=== PATIENT | female | born 1990 | race Caucasian/White ===

== ENCOUNTER 2018-05-18 22:59 | Emergency (ER) | payer BC, OTHER ==
[2018-05-18] MEDS ORDERED: Sodium Chloride 0.9% 1,000 ML IV ONE (23:28)
[2018-05-18] MEDS ORDERED: Ketorolac 30 MG/ML SDV IVPUSH ONE (23:28)
[2018-05-18] MEDS ORDERED: LORazepam 2 MG/ML SDV IVPUSH ONE (23:28)
[2018-05-18] MEDS ORDERED: diphenhydrAMINE 50 MG/ML SDV IVPUSH ONE (23:28)
[2018-05-18] MEDS ORDERED: Ondansetron 4 MG/2 ML SDV IVPUSH ONE (23:28)
[2018-05-18] MEDS ORDERED: Sodium Chloride 0.9% 2.5 ML Syringe FLUSH PRN (23:29)
[2018-05-18] MEDS ORDERED: Sodium Chloride 0.9% 10 ML Syringe FLUSH PRN (23:29)
[2018-05-18] MEDS ORDERED: methylPREDNISolone Sodium Succinate 125 MG/2 ML SDV IVPUSH ONE (23:29)
--- NOTE | 2018-05-18 23:32 | EDM.PDOC ---
ED HPI GENERAL MEDICAL PROBLEM - General Chief Complaint: Headache Stated Complaint: HEADACHE Time Seen by Provider: 05/18/18 23:20 - History of Present Illness INITIAL COMMENTS - FREE TEXT/NARRATIVE: HISTORY AND PHYSICAL: History of present illness: The patient is a 28-year-old female who says that she has a long-standing history of headaches and usually gets them once a month always on the left side of her head and can usually control them at home but is here for an intractable headache. She says the presentation of this headache and location are exactly the same as all of her prior headaches and usually she just tries to use symptomatic care and it did not work today. She started having vomiting and now cannot stop vomiting and is made the headache worse. She's had no recent trauma or fevers no upper respiratory symptoms and says that in the past she was prescribed Imitrex by a family doctor but she says that that does not work and actually makes her feel worse. She did not try the Imitrex prior to coming here. She said she's had some tension and stressors and has had some muscle aches and pains and she is not sure of this triggered it. She has no visual changes and she is not lightheaded or dizzy nor has she had any neurosensory changes or weakness in her extremities. She's had no runny nose or sinus pressure Review of systems: As per history of present illness and below otherwise all systems reviewed and negative. Past medical history: As per history of present illness and as reviewed below otherwise noncontributory. Surgical history: As per history of present illness and as reviewed below otherwise noncontributory. Social history: No reported history of drug or alcohol abuse. Family history: As per history of present illness and as reviewed below otherwise noncontributory. Physical exam: HEENT: Atraumatic, normocephalic, pupils reactive, negative for conjunctival pallor or scleral icterus, mucous membranes moist, throat clear, neck supple, nontender, trachea midline. There is no cervical adenopathy or nuchal rigidity Lungs: Clear to auscultation, breath sounds equal bilaterally, chest nontender. Heart: S1S2, regular, negative for clicks, rubs, or JVD. Abdomen: Soft, nondistended, nontender. Negative for masses or hepatosplenomegaly. NABS Pelvis: Deferred. Genitourinary: Deferred. Rectal: Deferred. Extremities: Atraumatic, negative for cords or calf pain. Neurovascular unremarkable. Neuro: Awake, alert, oriented. Cranial nerves II through XII unremarkable. Cerebellum unremarkable. Motor and sensory unremarkable throughout. Exam nonfocal. Diagnostics: None Therapeutics: IV fluids Toradol Zofran Benadryl Solu-Medrol She is feeling better and would like to go home and go to bed. I will write her prescription for Zofran as well as some Uristat to try and will advise follow- up with her provider or one of ours for further care and evaluation Impression: Migraine equivalent, With history of same stable Definitive disposition and diagnosis as appropriate pending reevaluation and review of above. head Pain Score (Numeric/FACES): 8 - Related Data Allergies Allergy/AdvReac Type Severity Reaction Status Date / Time No Known Allergies Allergy Verified 05/18/18 23:11 Home Meds: Home Meds . 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: Musculoskeletal History: Reports: None Neurological History: Reports: Migraines Psychiatric History: Reports: Anxiety Endocrine/Metabolic History: Reports: None Hematologic History: Reports: None Immunologic History: Reports: None Oncologic (Cancer) History: Reports: None Dermatologic History: Reports: None - Infectious Disease History Infectious Disease History: Reports: None - Past Surgical History Head Surgeries/Procedures: Reports: None HEENT Surgical History: Reports: None Cardiovascular Surgical History: Reports: None Respiratory Surgical History: Reports: None GI Surgical History: Reports: None Female Surgical History: Reports: None Endocrine Surgical History: Reports: None Neurological Surgical History: Reports: None Musculoskeletal Surgical History: Reports: None Social & Family History - Tobacco Use Smoking Status *Q: Never Smoker - Recreational Drug Use Recreational Drug Use: No ED ROS GENERAL - Review of Systems Review Of Systems: ROS reveals no pertinent complaints other than HPI. ED EXAM, GENERAL - Physical Exam Exam: See Below (The dictation) Course - Vital Signs Last Recorded V/S: Last Vital Signs Temp 36.4 C 05/18/18 23:12 Pulse 91 05/18/18 23:12 Resp 14 05/18/18 23:12 BP 123/75 05/18/18 23:12 Pulse Ox 95 05/18/18 23:12 - Orders/Labs/Meds Orders: Active Orders 24 hr Category Date Time Status Sodium Chloride 0.9% [Normal Saline] 1,000 ml Med 05/18/18 23:28 Active IV STAT Sodium Chloride 0.9% [Saline Flush] Med 05/18/18 23:29 Active 10 ml FLUSH ASDIRECTED PRN Sodium Chloride 0.9% [Saline Flush] Med 05/18/18 23:29 Active 2.5 ml FLUSH ASDIRECTED PRN Saline Lock Insert [OM.PC] Stat Oth 05/18/18 23:28 Ordered Medication Orders Sodium Chloride (Normal Saline) 1,000 mls @ 999 mls/hr IV STAT ONE Stop: 05/19/18 00:28 Last Admin: 05/18/18 23:45 Dose: 999 mls/hr Sodium Chloride (Saline Flush) 10 ml FLUSH ASDIRECTED PRN PRN Reason: Keep Vein Open Sodium Chloride (Saline Flush) 2.5 ml FLUSH ASDIRECTED PRN PRN Reason: Keep Vein Open Meds: Medications Generic Name Dose Route Start Last Admin Trade Name Freq PRN Reason Stop Dose Admin Sodium Chloride 1,000 mls @ 999 mls/hr 05/18/18 23:28 05/18/18 23:45 Normal Saline IV 05/19/18 00:28 999 mls/hr STAT ONE Administration Sodium Chloride 10 ml 05/18/18 23:29 Saline Flush FLUSH ASDIRECTED PRN Keep Vein Open Sodium Chloride 2.5 ml 05/18/18 23:29 Saline Flush FLUSH ASDIRECTED PRN Keep Vein Open Discontinued Medications Generic Name Dose Route Start Last Admin Trade Name Freq PRN Reason Stop Dose Admin Diphenhydramine HCl 25 mg 05/18/18 23:28 05/18/18 23:49 Benadryl IVPUSH 05/18/18 23:29 25 mg ONETIME ONE Administration Ketorolac Tromethamine 30 mg 05/18/18 23:28 05/18/18 23:49 Toradol IVPUSH 05/18/18 23:29 30 mg ONETIME ONE Administration Lorazepam 1 mg 05/18/18 23:28 05/18/18 23:51 Ativan IVPUSH 05/18/18 23:29 1 mg ONETIME ONE Administration Methylprednisolone Sodium Succinate 125 mg 05/18/18 23:29 05/18/18 23:48 Solu-Medrol IVPUSH 05/18/18 23:30 125 mg ONETIME ONE Administration Ondansetron HCl 4 mg 05/18/18 23:28 05/18/18 23:45 Zofran IVPUSH 05/18/18 23:29 4 mg ONETIME ONE Administration Departure - Departure Time of Disposition: 00:23 Disposition: Home, Self-Care 01 Condition: Good Clinical Impression: Migraine - Discharge Information Referrals: PCP,None [Primary Care Provider] - Forms: ED Department Discharge Additional Instructions: The following information is given to patients seen in the emergency department who are being discharged to home. This information is to outline your options for follow-up care. We provide all patients seen in our emergency department with a follow-up referral. The need for follow-up, as well as the timing and circumstances, are variable depending upon the specifics of your emergency department visit. If you don't have a primary care physician on staff, we will provide you with a referral. We always advise you to contact your personal physician following an emergency department visit to inform them of the circumstance of the visit and for follow-up with them and/or the need for any referrals to a consulting specialist. The emergency department will also refer you to a specialist when appropriate. This referral assures that you have the opportunity for followup care with a specialist. All of these measure are taken in an effort to provide you with optimal care, which includes your followup. Under all circumstances we always encourage you to contact your private physician who remains a resource for coordinating your care. When calling for followup care, please make the office aware that this follow-up is from your recent emergency room visit. If for any reason you are refused follow-up, please contact the [facility] emergency department at and ask to speak to the emergency department charge nurse. [facility] Primary care- Internal Medicine and Family [address] [id number] Push hydration and rest as much as possible and try to connect with either your provider or one of ours for follow-up care using resources given to above. Return to ER as needed and as discussed. Please fill the prescription you have been given and use those medications as needed. - My Orders Last 24 Hours: My Active Orders 05/18/18 23:28 Sodium Chloride 0.9% [Normal Saline] 1,000 ml IV STAT Saline Lock Insert [OM.PC] Stat 05/18/18 23:29 Sodium Chloride 0.9% [Saline Flush] 10 ml FLUSH ASDIRECTED PRN Sodium Chloride 0.9% [Saline Flush] 2.5 ml FLUSH ASDIRECTED PRN - Assessment/Plan Last 24 Hours: My Active Orders 05/18/18 23:28 Sodium Chloride 0.9% [Normal Saline] 1,000 ml IV STAT Saline Lock Insert [OM.PC] Stat 05/18/18 23:29 Sodium Chloride 0.9% [Saline Flush] 10 ml FLUSH ASDIRECTED PRN Sodium Chloride 0.9% [Saline Flush] 2.5 ml FLUSH ASDIRECTED PRN
[2018-05-19 00:37] VITALS: BP 116/72
== END 2018-05-19 00:43 | disposition home or self-care (01) ==
LOC: MW.ED 22:59
DX: G43.909 Migraine, unspecified, not intractable, without status migrainosus (principal)
CPT/HCPCS: 96361; 96374; 96375; 99283; J1200; J1885; J2060; J2405; J2930; J7040

== ENCOUNTER 2019-05-22 04:55 | Inpatient (IN) | payer OTHER ==
[2019-05-22] MEDS ORDERED: Water For Irrigation,Sterile 1,000 ML Container IRR PRN (06:01)
[2019-05-22] MEDS ORDERED: Misoprostol 200 MCG Tab PO PRN (06:01)
[2019-05-22] MEDS ORDERED: Sodium Chloride 0.9% 2.5 ML Syringe FLUSH PRN (06:01)
[2019-05-22] MEDS ORDERED: Carboprost Tromethamine 250 MCG/1 ML Amp IM PRN (06:01)
[2019-05-22] MEDS ORDERED: Lidocaine 1% 50 ML MDV INJECT PRN (06:01)
[2019-05-22] MEDS ORDERED: Sodium Chloride 0.9% 10 ML SDV IV PRN (06:01)
[2019-05-22] MEDS ORDERED: Methylergonovine 0.2 MG/1 ML Amp IM PRN (06:01)
[2019-05-22] MEDS ORDERED: Terbutaline 1 MG/ML SDV SUBCUT PRN (06:01)
[2019-05-22] MEDS ORDERED: Sodium Chloride 0.9% 10 ML Syringe FLUSH PRN (06:01)
[2019-05-22] MEDS ORDERED: Tranexamic Acid 1,000 MG in Sodium Chloride 0.9% 100 ML IV PRN (06:01)
[2019-05-22] MEDS ORDERED: Nalbuphine 10 MG/1 ML Vial IVPUSH PRN (06:01)
[2019-05-22] MEDS ORDERED: Ondansetron 4 MG/2 ML SDV IVPUSH PRN (06:01)
[2019-05-22] MEDS ORDERED: Butorphanol 1 MG/ML SDV IVPUSH PRN (06:01)
[2019-05-22] MEDS ORDERED: Oxytocin/0.9 % Sodium Chloride 30 UNIT/500 ML BAG IV SCH ×2 (06:15)
[2019-05-22] MEDS: Lactated Ringers 1,000 ML IV SCH ×4 (06:34→12:06)
[2019-05-22] MEDS ORDERED: Ropivacaine HCl/PF 100 ML ONE (09:37)
[2019-05-22] MEDS ORDERED: fentaNYL 100 MCG/2 ML SDV ONE ×2 (09:37→11:20)
--- NOTE | 2019-05-22 09:59 | PCM.PREANE ---
Preanesthetic Assessment - Anesthesia/Transfusion/Family Hx Anesthesia History: Prior Anesthesia Without Reaction Family History of Anesthesia Reaction: No Transfusion History: No Prior Transfusion(s) - Physical Assessment NPO Status Date: 05/22/19 NPO Status Time: 00:05 Height: 1.68 m Weight: 83.915 kg ASA Class: 1 - Lab Values: Laboratory Last Values WBC 9.41 K/uL (4.0-11.0) 05/22/19 05:52 RBC 4.33 M/uL (4.30-5.90) 05/22/19 05:52 Hgb 13.0 g/dL (12.0-16.0) 05/22/19 05:52 Hct 37.3 % (36.0-46.0) 05/22/19 05:52 MCV 86.1 fL (80.0-98.0) 05/22/19 05:52 MCH 30.0 pg (27.0-32.0) 05/22/19 05:52 MCHC 34.9 g/dL (31.0-37.0) 05/22/19 05:52 RDW Std Deviation 41.6 fl (28.0-62.0) 05/22/19 05:52 RDW Coeff of Juan Manuel 13 % (11.0-15.0) 05/22/19 05:52 Plt Count 185 K/uL (150-400) 05/22/19 05:52 MPV 10.00 fL (7.40-12.00) 05/22/19 05:52 Nucleated RBC % 0.0 /100WBC 05/22/19 05:52 Nucleated RBCs # 0 K/uL 05/22/19 05:52 Blood Type A NEGATIVE 05/22/19 05:52 Antibody Screen NEGATIVE 05/22/19 05:52 - Allergies Allergies/Adverse Reactions: Allergies Allergy/AdvReac Type Severity Reaction Status Date / Time No Known Allergies Allergy Verified 05/09/19 16:27 - Acknowledgements Anesthesia Type Planned: Epidural Pt an Appropriate Candidate for the Planned Anesthesia: Yes Alternatives and Risks of Anesthesia Discussed w Pt/Guardian: Yes Pt/Guardian Understands and Agrees with Anesthesia Plan: Yes PreAnesthesia Questionnaire - Past Health History Medical/Surgical History: Denies Medical/Surgical History HEENT History: Reports: None Cardiovascular History: Reports: None Respiratory History: Reports: None Gastrointestinal History: Reports: None Genitourinary History: Reports: None 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: Musculoskeletal History: Reports: None Neurological History: Reports: Migraines Psychiatric History: Reports: Anxiety Endocrine/Metabolic History: Reports: None Hematologic History: Reports: None Immunologic History: Reports: None Oncologic (Cancer) History: Reports: None Dermatologic History: Reports: None - Infectious Disease History Infectious Disease History: Reports: None - Past Surgical History Head Surgeries/Procedures: Reports: None HEENT Surgical History: Reports: None, Oral Surgery Cardiovascular Surgical History: Reports: None Respiratory Surgical History: Reports: None GI Surgical History: Reports: None Female Surgical History: Reports: None Endocrine Surgical History: Reports: None Neurological Surgical History: Reports: None Musculoskeletal Surgical History: Reports: None - SUBSTANCE USE Smoking Status *Q: Never Smoker Second Hand Smoke Exposure: No Recreational Drug Use History: No - HOME MEDS Home Medications: Home Meds Pnv No.95/Ferrous Fum/Folic AC [ Multivitamin Tablet] 1 tab PO DAILY 06/24 [History] - CURRENT (IN HOUSE) MEDS Current Meds: Current Medications Butorphanol Tartrate (Stadol) 1 mg IVPUSH Q1H PRN PRN Reason: Pain Carboprost Tromethamine (Hemabate Ds) 250 mcg IM ASDIRECTED PRN PRN Reason: Post Hemorrhage Lactated Ringer's (Ringers, Lactated) 1,000 mls @ 150 mls/hr IV ASDIRECTED JOSE E Last Admin: 05/22/19 07:40 Dose: 150 mls/hr Oxytocin/Sodium Chloride (Oxytocin 30 Unit/500 Ml-Ns) 30 unit in 500 mls @ 999 mls/hr IV TITRATE JOSE E Oxytocin/Sodium Chloride (Oxytocin 30 Unit/500 Ml-Ns) 30 unit in 500 mls @ 2 mls/hr IV TITRATE JOSE E; Protocol Last Titration: 05/22/19 07:30 Dose: 4 munits/min, 4 mls/hr Tranexamic Acid 1,000 mg/ (Sodium Chloride) 110 mls @ 660 mls/hr IV ONETIME PRN PRN Reason: Bleeding Lidocaine HCl (Xylocaine 1%) 50 ml INJECT ONETIME PRN PRN Reason: Laceration repair Methylergonovine Maleate (Methergine) 0.2 mg IM ASDIRECTED PRN PRN Reason: Post Hemorrhage Misoprostol (Cytotec) 200 mcg PO ONETIME PRN PRN Reason: Post Hemorrhage Nalbuphine HCl (Nubain) 10 mg IVPUSH Q1H PRN PRN Reason: Pain (severe 7-10) Ondansetron HCl (Zofran) 4 mg IVPUSH Q6H PRN PRN Reason: Nausea/Vomiting Sodium Chloride (Saline Flush) 10 ml FLUSH ASDIRECTED PRN PRN Reason: Keep Vein Open Sodium Chloride (Saline Flush) 2.5 ml FLUSH ASDIRECTED PRN PRN Reason: Keep Vein Open Sodium Chloride (Normal Saline) 10 ml IV ASDIRECTED PRN PRN Reason: IV Use Sterile Water (Sterile Water For Irrigation) 1,000 ml IRR ASDIRECTED PRN PRN Reason: delivery Terbutaline Sulfate (Brethine) 0.25 mg SUBCUT ASDIRECTED PRN PRN Reason: Tacysystole Discontinued Medications Fentanyl (Sublimaze) Confirm Administered Dose 100 mcg .ROUTE .STK-MED ONE Stop: 05/22/19 09:38 Ropivacaine (Naropin 0.2%) Confirm Administered Dose 100 mls @ as directed .ROUTE .STK-MED ONE Stop: 05/22/19 09:38
--- NOTE | 2019-05-22 10:03 | PCM.PRNOTE ---
- Free Text/Narrative Note: Anes Note Patient requests epidural for L&D> Sitting position, levelL3-L4 midline approach. Sterile technique. Chloraprep scrub to lumbar area. Sterile fenestrated drape applied. Epidural space easily achieved single attempt with ease using KENNY technique. KENNY at 3 cm. Cath threaded 5 cm with ease. Cath secured at skin at 9 cm using sterile clear adhesive dressing. 0945 test 3 cc 1.5% lido with epi nergative 0950 load 10 cc 0.2% Ropivicaine in slow divided doses. 0955 pump started with 90 cc same solution. Rate is 8 cc hr, with software development manager bolus 6 cc q 20 min prn. Moises well. Time with patient [id number] Prakash Rodriguez BREAST BUFFER
--- NOTE | 2019-05-22 11:36 | PCM.PRNOTE ---
- Free Text/Narrative Note: Anes NOte Patient reports incomplete analgesia on left side. Epidural cath pulled back 1 cm and redressedwith sterile adhesive dressing. Epidural doses with 2 cc fentanyl and 5 cc 2% lido with epi. Patient now reports excellent analgesia for L&D> Time with patient [id number] Prakash Rodriguez PRIVATE BRANCH EXCHANGE INSTALLER
[2019-05-22] MEDS ORDERED: Aluminum Hydroxide/Magnesium Hydroxide/Simethicone Susp 30 ML Cup PO PRN (13:38)
[2019-05-22] MEDS ORDERED: Witch Hazel Medicated Pads 40/Jar TOP PRN (13:38)
[2019-05-22] MEDS ORDERED: Docusate Sodium 100 MG Cap PO PRN (13:38)
[2019-05-22] MEDS ORDERED: Acetaminophen 500 MG Tab PO PRN ×2 (13:38)
[2019-05-22] MEDS ORDERED: Ibuprofen 400 MG Tab PO PRN (13:38)
[2019-05-22] MEDS ORDERED: oxyCODONE 5 MG Tab PO PRN (13:38)
[2019-05-22] MEDS ORDERED: Benzocaine/Menthol 20%-0.5% Spray 78 GM Cannister TOP PRN (13:38)
[2019-05-22] MEDS ORDERED: Bisacodyl 10 MG Supp RECTAL PRN (13:38)
[2019-05-22] MEDS ORDERED: Lanolin 100% Cream 7 GM Tube TOP PRN (13:38)
--- NOTE | 2019-05-22 13:47 | PCM.OPNOTE ---
- General Post-Op/Procedure Note Date of Surgery/Procedure: 05/22/19 Operative Procedure(s): Vaccuum assisted vaginal delivery/IP Findings: Viable male APGARs 8, 9 weight pending. Spontaneous delivery intact placenta with 3V cord Pre Op Diagnosis: 39/0 week IUP. Induction of labor. bradycardia Post-Op Diagnosis: Same Anesthesia Technique: Epidural Primary Surgeon: Caroline Aquino EBL in mLs: 250 Complications: none known Condition: Good Free Text/Narrative:: Dictation [id number]
[2019-05-22] MEDS: Ibuprofen 800 MG Tab PO PRN (14:40)
--- NOTE | 2019-05-22 15:12 | OR ---
SURGEON: Caroline Aquino M.D. DATE OF PROCEDURE: 05/22/2019 PREOPERATIVE DIAGNOSES: 1. A 39-week intrauterine . 2. Induction of labor. 3. bradycardia. POSTOPERATIVE DIAGNOSES: 1. A 39-week intrauterine . 2. Induction of labor. 3. bradycardia. PROCEDURE: Vacuum-assisted vaginal delivery, intact perineum. PRIMARY SURGEON: Caroline Aquino MD ANESTHESIA: Epidural. ESTIMATED BLOOD LOSS: 250 mL. COMPLICATIONS: None known. FINDINGS: Viable male. scores 8 at one minute and 9 at five minutes. Weight is pending. Spontaneous delivery, intact placenta, 3-vessel cord. DISPOSITION: Infant to nursery, mom in LDRP. PROCEDURE DETAILS: Quinton a 29-year-old G4, P 3-0-1-2, at 39 weeks' gestational age, who presents today for scheduled induction of labor due to history of a 34-week demise. Term gestation, favorable cervix. Upon admission, the patient was initiated on Pitocin. Responded nicely to this, became slightly more uncomfortable. Approximately at 9 a.m., she was found to be 4 to 5 cm, 70%, minus 2 station. She is group B beta strep negative. Therefore, amniotomy was performed, clear fluid was returned. She began responding more rapidly thereafter. Became increasingly uncomfortable and underwent regional anesthesia in the form of epidural. She had a fairly strong response to this epidural and actually became quite hypotensive, received 3 doses of ephedrine. She was comfortable and blood pressures did correct, but during that interval, there were episodes of decelerations. With correction of blood pressure; however, the heart tones returned to the 120s to 130s. The patient at that point was found to be complete, 100% effaced, 0 station. She was allowed to continue to labor, and shortly before 1 p.m., she was found to be complete, 100% effaced, +2 station. I was called for delivery. Upon my arrival, the patient was placed in modified dorsal lithotomy position. Was prepped in the usual aseptic manner. The patient began pushing efforts. Her epidural was very dense at this juncture. Therefore, her pushing efforts were somewhat inhibited. However, the patient was pushing and able to push to a +3 station. At that juncture of +3 station; however, the heart tones decreased to the 70s and began having reduced capability of returning to baseline. Finally, there was an episode of persistent 70s to 80s. Therefore, I discussed with Quinton proceeding with an operative vaginal delivery to help expedite delivery. Risks of the vacuum apparatus had been discussed with her including cephalhematoma, intracranial bleeding, increased risk for maternal vaginal trauma. She and her voiced their understanding of this and agreed to proceed with an operative vaginal delivery. was felt to be SUSANNAH at the +2 station. sutures palpated including sagittal suture. The Mityvac was now gently introduced to the scalp after testing the vacuum to see that it was able to insufflate adequately. With the next contraction, I was able to insufflate the vacuum to a green zone. Was able to assist with vaginal delivery. The head delivered quite easily at this juncture with a single push. The vacuum was released. Anterior shoulder, posterior shoulder, and remainder of body were now delivered. The 's oropharynx and nares were bulb suctioned. Infant was crying. was handed off to his mother with attending nursing staff at the side. After a delay, cord was clamped x2 and cut. Cord arterial, cord venous, cord blood sampling was obtained. Light pressure was applied while the placenta was delivered spontaneously intact. Vigorous fundal massage was then applied while 30 units of Pitocin was delivered in 500 mL of fluid. Upon inspection of cervix, vaginal sidewalls, and perineum, these were found to be intact. The uterus remained firm. Sponge count and instrument count were correct. The patient remained in LDRP, to nursery. GAYLE / TONY /[id number] NIRMAL
[2019-05-23] MEDS: Ibuprofen 800 MG Tab PO PRN ×2 (02:54→12:25)
--- NOTE | 2019-05-23 10:28 | PCM.PNPP ---
- General Info Date of Service: 05/23/19 Functional Status: Reports: Pain Controlled, Tolerating Diet, Ambulating, Urinating - Review of Systems General: Reports: Fatigue. Denies: Fever, Weakness Pulmonary: Denies: Shortness of Breath Cardiovascular: Denies: Chest Pain, Palpitations, Lightheadedness Gastrointestinal: Denies: Abdominal Pain, Nausea, Vomiting Genitourinary: Denies: Flank Pain Musculoskeletal: Reports: No Symptoms Skin: Reports: No Symptoms Neurological: Reports: No Symptoms Psychiatric: Reports: No Symptoms - General Info Date of Service: 05/23/19 - Patient Data Vital Signs - Most Recent: Last Vital Signs Temp 36.2 C 05/23/19 07:30 Pulse 85 05/23/19 07:30 Resp 16 05/23/19 07:30 BP 111/61 05/23/19 07:30 Pulse Ox 98 05/23/19 07:30 Weight - Most Recent: 83.915 kg Lab Results - Last 24 Hours: Laboratory Results - last 24 hr 05/22/19 05/22/19 05/23/19 Range/Units 13:18 14:28 05:45 Hgb 11.4 L (12.0-16.0) g/dL Hct 33.4 L (36.0-46.0) % Cord ABG pH 7.233 (7.18-7.38) Cord ABG Base Excess -5 (-10--2) Cord VBG pH 7.278 (7.25-7.45) Cord VBG Base Excess -5 (-10--2) Screen NEGATIVE (NEGATIVE) RhIG Candidate? YES Rhogam Indicated YES, BABY RH POS H Med Orders - Current: Current Medications Acetaminophen (Tylenol Extra Strength) 500 mg PO Q4H PRN PRN Reason: Pain Acetaminophen (Tylenol Extra Strength) 1,000 mg PO Q4H PRN PRN Reason: Pain Al Hydroxide/Mg Hydroxide (Mag-Al Plus) 30 ml PO Q8H PRN PRN Reason: Heartburn Benzocaine/Menthol (Dermoplast Pain Relief 20%-0.5% Beaver) 78 gm TOP ASDIRECTED PRN PRN Reason: Perineal Comfort Measure Last Admin: 05/22/19 14:39 Dose: 1 canister Bisacodyl (Dulcolax) 10 mg RECTAL ONETIME PRN PRN Reason: Constipation Carboprost Tromethamine (Hemabate Ds) 250 mcg IM ASDIRECTED PRN PRN Reason: Post Hemorrhage Docusate Sodium (Colace) 100 mg PO BID PRN PRN Reason: Constipation Last Admin: 05/22/19 21:43 Dose: 100 mg Emollient Ointment (Lansinoh Hpa) 0 gm TOP ASDIRECTED PRN PRN Reason: Sore Nipples Last Admin: 05/22/19 14:40 Dose: 7 g Lactated Ringer's (Ringers, Lactated) 1,000 mls @ 150 mls/hr IV ASDIRECTED JOSE E Last Admin: 05/22/19 12:06 Dose: 500 mls/hr Oxytocin/Sodium Chloride (Oxytocin 30 Unit/500 Ml-Ns) 30 unit in 500 mls @ 999 mls/hr IV TITRATE JOSE E Last Infusion: 05/22/19 13:33 Dose: 500 mls/hr Oxytocin/Sodium Chloride (Oxytocin 30 Unit/500 Ml-Ns) 30 unit in 500 mls @ 2 mls/hr IV TITRATE JOSE E; Protocol Last Titration: 05/22/19 13:17 Dose: 0 munits/min, 0 mls/hr Tranexamic Acid 1,000 mg/ (Sodium Chloride) 110 mls @ 660 mls/hr IV ONETIME PRN PRN Reason: Bleeding Ibuprofen (Motrin) 400 mg PO Q4H PRN PRN Reason: Pain Ibuprofen (Motrin) 800 mg PO Q6H PRN PRN Reason: Pain Last Admin: 05/23/19 02:54 Dose: 800 mg Methylergonovine Maleate (Methergine) 0.2 mg IM ASDIRECTED PRN PRN Reason: Post Hemorrhage Nalbuphine HCl (Nubain) 10 mg IVPUSH Q1H PRN PRN Reason: Pain (severe 7-10) Ondansetron HCl (Zofran) 4 mg IVPUSH Q6H PRN PRN Reason: Nausea/Vomiting Oxycodone HCl (Oxycodone) 5 mg PO Q2H PRN PRN Reason: Pain Sodium Chloride (Saline Flush) 10 ml FLUSH ASDIRECTED PRN PRN Reason: Keep Vein Open Sodium Chloride (Saline Flush) 2.5 ml FLUSH ASDIRECTED PRN PRN Reason: Keep Vein Open Sodium Chloride (Normal Saline) 10 ml IV ASDIRECTED PRN PRN Reason: IV Use Sterile Water (Sterile Water For Irrigation) 1,000 ml IRR ASDIRECTED PRN PRN Reason: delivery Terbutaline Sulfate (Brethine) 0.25 mg SUBCUT ASDIRECTED PRN PRN Reason: Tacysystole Sneha Arellano (Tucks) 1 pad TOP ASDIRECTED PRN PRN Reason: comfort care Last Admin: 05/22/19 14:39 Dose: 1 tub Discontinued Medications Butorphanol Tartrate (Stadol) 1 mg IVPUSH Q1H PRN PRN Reason: Pain Fentanyl (Sublimaze) Confirm Administered Dose 100 mcg .ROUTE .STK-MED ONE Stop: 05/22/19 09:38 Fentanyl (Sublimaze) Confirm Administered Dose 100 mcg .ROUTE .STK-MED ONE Stop: 05/22/19 11:21 Ropivacaine (Naropin 0.2%) Confirm Administered Dose 100 mls @ as directed .ROUTE .STK-MED ONE Stop: 05/22/19 09:38 Lidocaine HCl (Xylocaine 1%) 50 ml INJECT ONETIME PRN PRN Reason: Laceration repair Misoprostol (Cytotec) 200 mcg PO ONETIME PRN PRN Reason: Post Hemorrhage - Infant Interaction Support Person: - Recovery Exam Fundal Tone: Firm Fundal Level: 1 Fingerbreadths Below Umbilicus Fundal Placement: Midline Lochia Amount: Scant, Small Lochia Color: Rubra/Red Bladder Status: Voiding Urinary Elimination: Voided - Exam General: Alert, Oriented Lungs: Normal Respiratory Effort Cardiovascular: Regular Rate, Regular Rhythm GI/Abdominal Exam: Normal Bowel Sounds, Soft Extremities: Pedal Edema (trace). No: Billy's Sign Skin: Warm, Dry, Intact Neurological: No New Focal Deficit Psy/Mental Status: Alert, Normal Affect, Normal Mood - Problem List & Annotations (1) Vaginal delivery SNOMED Code(s): 594017541 Code(s): O80 - ENCOUNTER FOR FULL-TERM UNCOMPLICATED DELIVERY Status: Acute Current Visit: Yes - Problem List Review Problem List Initiated/Reviewed/Updated: Yes - My Orders Last 24 Hours: My Active Orders 05/22/19 13:38 Patient Status [ADT] Routine May Shower [RC] ASDIRECTED Notify Provider Vital Signs [RC] ASDIRECTED Up ad Bethany [RC] ASDIRECTED Vital Signs [RC] PER UNIT ROUTINE Acetaminophen [Tylenol Extra Strength] 1,000 mg PO Q4H PRN Acetaminophen [Tylenol Extra Strength] 500 mg PO Q4H PRN Alum Hydrox/Mag Hydrox/Simeth [Mag-Al Plus] 30 ml PO Q8H PRN Benzocaine/Menthol [Dermoplast Pain Relief 20%-0.5% Beaver] 78 gm TOP ASDIRECTED PRN Docusate Sodium [Colace] 100 mg PO BID PRN Ibuprofen [Motrin] 400 mg PO Q4H PRN Ibuprofen [Motrin] 800 mg PO Q6H PRN Lanolin [Lansinoh HPA] See Dose Instructions TOP ASDIRECTED PRN bisacodyL [Dulcolax] 10 mg RECTAL ONETIME PRN oxyCODONE 5 mg PO Q2H PRN witch Esther [Tucks] 1 pad TOP ASDIRECTED PRN Assess Lochia [WOMSER] Per Unit Routine Assess Uterine Involution [WOMSER] Per Unit Routine Ice Therapy [OM.PC] Per Unit Routine Perineal Care [OM.PC] Per Unit Routine Peripheral IV Discontinue [OM.PC] Routine Sitz Bath [OM.PC] Per Unit Routine 05/22/19 13:39 Cooling Warming Measures [RC] ASDIRECTED 05/22/19 14:28 SCREEN [BBK] Routine RH IMMUNE GLOBULIN [BBK] Routine RHOGAM, [RHIG WORKUP, ] [BBK] Routine 05/22/19 Lunch Regular Diet [DIET] - Assessment Assessment:: PPD 1 status post VAVD - Plan Plan:: Doing well overall. VS and labs are reassuring. Would like to go home today. Discharge instructions reviewed. Follow up at [facility] 6 weeks. Discharge to home.
--- NOTE | 2019-05-23 12:33 | PCM48HPAN ---
Post Anesthesia Note - EVALUATION WITHIN 48HRS OF ANESTHETIC Vital Signs in Normal Range: Yes Patient Participated in Evaluation: Yes Respiratory Function Stable: Yes Airway Patent: Yes Cardiovascular Function Stable: Yes Hydration Status Stable: Yes Pain Control Satisfactory: Yes Nausea and Vomiting Control Satisfactory: Yes Mental Status Recovered: Yes Vital Signs: Last Vital Signs Temp 36.2 C 05/23/19 07:30 Pulse 85 05/23/19 07:30 Resp 16 05/23/19 07:30 BP 111/61 05/23/19 07:30 Pulse Ox 98 05/23/19 07:30
[2019-05-23 16:27] VITALS: BP 117/72; PULSE 71
== END 2019-05-23 17:19 | disposition home or self-care (01) | DRG 807 ==
LOC: MW.OBCHECK 04:55 → MW.OB 04:55 → MW.OBCHECK 06:02 → MW.OB 06:02 → OBSVTOIN 13:16 → MW.OB 19:15
PROVIDERS: ADMIT Obstetrics & Gynecology; ATTEND Obstetrics & Gynecology
PROC: 10D07Z6 Extraction of Products of Conception, Vacuum, Via Natural or Artificial Opening (ICD-10-PCS; principal; 2019-05-22)
PROC: 10907ZC Drainage of Amniotic Fluid, Therapeutic from Products of Conception, Via Natural or Artificial Opening (ICD-10-PCS; 2019-05-22)
PROC: 3E0R3BZ Introduction of Anesthetic Agent into Spinal Canal, Percutaneous Approach (ICD-10-PCS; 2019-05-22)
PROC: 00HU33Z Insertion of Infusion Device into Spinal Canal, Percutaneous Approach (ICD-10-PCS; 2019-05-22)
DX: O76 Abnormality in fetal heart rate and rhythm complicating labor and delivery (principal); Z37.0 Single live birth; Z3A.39 39 weeks gestation of pregnancy
CPT/HCPCS: 01967; 36415; 51702; 59025; 59409; 82803; 85014; 85018; 85027; 85460; 86592; 86593; 86850; 86900; 86901; A9270-GY; J2590; J2792; J2795; J3010; J7120

== ENCOUNTER 2020-12-30 16:06 | Emergency (ER) | payer BC, OTHER ==
[2020-12-30] MEDS ORDERED: Ketorolac 30 MG/ML SDV IVPUSH ONE (18:43)
[2020-12-30] MEDS ORDERED: Ondansetron 4 MG/2 ML SDV IVPUSH ONE (18:43)
[2020-12-30] MEDS ORDERED: Sodium Chloride 0.9% 1,000 ML IV ONE (18:43)
--- NOTE | 2020-12-30 18:45 | EDM.PDOC ---
ED HPI GENERAL MEDICAL PROBLEM - General Chief Complaint: Headache Stated Complaint: COVID POS Time Seen by Provider: 12/30/20 16:37 Source of Information: Reports: Patient History Limitations: Reports: No Limitations - History of Present Illness INITIAL COMMENTS - FREE TEXT/NARRATIVE: HISTORY AND PHYSICAL: History of present illness: Patient is a 30-year-old female who presents to the emergency room with complaints of headache, nausea, vomiting and cough. She is concerned she has COVID-19. Patient denies any change in vision, syncope or near syncope. Denies any chest pain, back pain, shortness of breath, abdominal pain, diarrhea, constipation or dysuria. Has not noted any blood in urine or stool. NO concern for . Patient has been eating and drinking appropriately. No recent travel or sick contacts. Review of systems: As per history of present illness and below otherwise all systems reviewed and negative. Past medical history: As per history of present illness and as reviewed below otherwise noncontributory. Surgical history: As per history of present illness and as reviewed below otherwise noncontributory. Social history: See social history for further information Family history: As per history of present illness and as reviewed below otherwise noncontributory. Physical exam: General: Well developed and well nourished 30 year old female. Alert and orientated x 3. Nontoxic in appearance and in no acute distress. Vital signs are stable and have been reviewed by me. Nursing notes were reviewed. HEENT: Atraumatic, normocephalic, pupils equal and reactive bilaterally, negative for conjunctival pallor or scleral icterus, mucous membranes moist, TMs normal bilaterally, throat clear, neck supple, nontender, trachea midline. No drooling or trismus noted. No meningeal signs. No hot potato voice noted. Lungs: Clear to auscultation bilaterally. No wheezes, rales, or rhonchi. Chest nontender. Normal work of breathing, no accessory muscles used. Heart: S1S2, regular rate and rhythm without overt murmur, gallops, or rubs. No JVD. No peripheral edema Abdomen: Soft, nondistended, nontender. Normoactive bowel sounds. Negative for masses or costovertebral tenderness. Skin: Intact, warm, dry. No lesions or rashes noted. Hematologic: No petechiae or purpra. Mucosa appropriate color and normal nail bed color and refill. Extremities: Atraumatic, moves all extremities per self without difficulty or deficits, negative for cords or calf pain. Neurovascular unremarkable. Neuro: Awake, alert, oriented. Cranial nerves II through XII unremarkable. Cerebellum unremarkable. Motor and sensory unremarkable throughout. Exam nonfocal. Psychiatric: Mood and affect are appropriate. Normal thought process. Answering questions appropriately. Please note that the patient was seen and evaluated during the 2019 SARS-CoV-2 novel coronavirus pandemic period. Community viral transmission is ongoing at time of this encounter and the emergency department is operating under pandemic response procedures. Medical Decision Making: Patient is a 30-year-old female who presents to the emergency room with concern she has COVID-19. Patient's physical exam is unremarkable. Her vital signs are stable. She is complaining of nausea and vomiting with a headache. We will give her some IV fluids and medications to help with symptoms while waiting on test results. Chest x-ray is unremarkable. She is positive for COVID-19. Her lab work shows no acute or concerning findings. She does feel somewhat improved after medications. I have talked with the patient about today's findings, in addition to providing specific details for plan of care. Reassessment at the time of disposition demonstrates that the patient is in no acute distress. The patient is stable for discharge, counseling was provided and we discussed in great detail signs and symptoms that would prompt them to return to the Emergency Department. Medication, follow up and supportive care measures were reviewed and discussed. Voices understanding and is agreeable to plan of care. Denies any further questions or concerns at this time. Diagnostics: CBC, CMP, COVID, CXR Therapeutics: IV fluids, Zofran, Toradol Prescription: Zofran Impression: COVID-19 Plan: 1. Your COVID-19 screening is positive. That means you do have the coronavirus and you are considered contagious. Your vital signs and oxygen saturation are well enough that you were able to monitor your symptoms at home. Continue to monitor for trouble breathing, new confusion or inability to arouse, bluish lips or face or any of the other symptoms we discussed -if this occurs please return to the emergency room immediately. 2. Please self quarantine until cleared by [facility]. Inform any persons that you have been in contact with since you started becoming symptomatic that you have tested positive; they should be made aware and take the appropriate steps as needed. 3. You can take NyQuil during the evening to help get a restful night sleep. May alternate Tylenol and ibuprofen as needed for pain and fever management. 4. The [facility] department will be calling you and following up with you. The [place] [facility] Hotline phone number , They are open Tuesday - Tuesday 7am - 7pm. Follow up with your primary care provider for re-evaluation as directed. Definitive disposition and diagnosis as appropriate pending reevaluation and review of above. Head Pain Score (Numeric/FACES): 8 - Related Data Allergies Allergy/AdvReac Type Severity Reaction Status Date / Time No Known Allergies Allergy Verified 12/30/20 18:34 Home Meds: Home Meds . 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: Musculoskeletal History: Reports: None Neurological History: Reports: Migraines Psychiatric History: Reports: Anxiety Endocrine/Metabolic History: Reports: None Hematologic History: Reports: None Immunologic History: Reports: None Oncologic (Cancer) History: Reports: None Dermatologic History: Reports: None - Infectious Disease History Infectious Disease History: Reports: None - Past Surgical History Head Surgeries/Procedures: Reports: None HEENT Surgical History: Reports: None, Oral Surgery Cardiovascular Surgical History: Reports: None Respiratory Surgical History: Reports: None GI Surgical History: Reports: None Female Surgical History: Reports: None Endocrine Surgical History: Reports: None Neurological Surgical History: Reports: None Musculoskeletal Surgical History: Reports: None Social & Family History - Family History Family Medical History: No Pertinent Family History - Tobacco Use Second Hand Smoke Exposure: No - Caffeine Use Caffeine Use: Reports: None - Recreational Drug Use Recreational Drug Use: No ED ROS GENERAL - Review of Systems Review Of Systems: Comprehensive ROS is negative, except as noted in HPI. ED EXAM, GI/ABD - Physical Exam Exam: See Below (See dictation) Course - Vital Signs Last Recorded V/S: Last Vital Signs Temp 97.3 F 12/30/20 18:21 Pulse 91 12/30/20 18:21 Resp 20 12/30/20 18:21 BP 111/82 12/30/20 18:21 Pulse Ox 97 12/30/20 18:21 - Orders/Labs/Meds Labs: Laboratory Tests 12/30/20 12/30/20 12/30/20 Range/Units 18:18 19:00 19:26 WBC 5.93 (4.0-11.0) K/uL RBC 5.20 (4.30-5.90) M/uL Hgb 15.6 (12.0-16.0) g/dL Hct 43.3 (36.0-46.0) % MCV 83.3 (80.0-98.0) fL MCH 30.0 (27.0-32.0) pg MCHC 36.0 (31.0-37.0) g/dL RDW Std Deviation 37.2 (28.0-62.0) fl RDW Coeff of Juan Manuel 12 (11.0-15.0) % Plt Count 180 (150-400) K/uL MPV 10.50 (7.40-12.00) fL Neut % (Auto) 74.2 (48.0-80.0) % Lymph % (Auto) 18.2 (16.0-40.0) % Parker % (Auto) 7.4 (0.0-15.0) % Eos % (Auto) 0.0 (0.0-7.0) % Baso % (Auto) 0.2 (0.0-1.5) % Neut # (Auto) 4.4 (1.4-5.7) K/uL Lymph # (Auto) 1.1 (0.6-2.4) K/uL Parker # (Auto) 0.4 (0.0-0.8) K/uL Eos # (Auto) 0.0 (0.0-0.7) K/uL Baso # (Auto) 0.0 (0.0-0.1) K/uL Nucleated RBC % 0.0 /100WBC Nucleated RBCs # 0 K/uL Sodium 137 (136-145) mmol/L Potassium 3.6 (3.5-5.1) mmol/L Chloride 103 (98-107) mmol/L Carbon Dioxide 21.3 (21.0-32.0) mmol/L BUN 9 (7.0-18.0) mg/dL Creatinine 0.7 (0.6-1.0) mg/dL Est Cr Clr Drug Dosing 109.01 mL/min Estimated GFR (MDRD) > 60.0 ml/min Glucose 92 (74-106) mg/dL Calcium 8.1 L (8.5-10.1) mg/dL Total Bilirubin 0.6 (0.2-1.0) mg/dL AST 32 (15-37) IU/L ALT 52 (14-63) IU/L Alkaline Phosphatase 72 (46-116) U/L Total Protein 7.4 (6.4-8.2) g/dL Albumin 3.4 (3.4-5.0) g/dL Globulin 4.0 (2.6-4.0) g/dL Albumin/Globulin Ratio 0.9 (0.9-1.6) SARS-CoV-2 RNA (JASON) POSITIVE H (NEGATIVE) Meds: Medications Discontinued Medications Generic Name Dose Route Start Last Admin Trade Name Tejasq PRN Reason Stop Dose Admin Sodium Chloride 1,000 mls @ 999 mls/hr 12/30/20 18:43 12/30/20 19:01 Normal Saline IV 12/30/20 19:43 999 mls/hr STAT ONE Administration Ketorolac Tromethamine 30 mg 12/30/20 18:43 12/30/20 19:02 Ketorolac 30 Mg/Ml Sdv IVPUSH 12/30/20 18:44 30 mg ONETIME ONE Administration Ondansetron HCl 4 mg 12/30/20 18:43 12/30/20 19:02 Ondansetron 4 Mg/2 Ml Sdv IVPUSH 12/30/20 18:44 4 mg ONETIME ONE Administration Departure - Departure Time of Disposition: 20:10 Disposition: Home, Self-Care 01 Clinical Impression: COVID-19 - Discharge Information Instructions: 10 Things You Can Do to Manage Your COVID-19 Symptoms at Home - [facility] (09/19/2020) Referrals: PCP,None [Primary Care Provider] - Forms: ED Department Discharge Additional Instructions: The following information is given to patients seen in the emergency department who are being discharged to home. This information is to outline your options for follow-up care. We provide all patients seen in our emergency department with a follow-up referral. The need for follow-up, as well as the timing and circumstances, are variable depending upon the specifics of your emergency department visit. If you don't have a primary care physician on staff, we will provide you with a referral. We always advise you to contact your personal physician following an emergency department visit to inform them of the circumstance of the visit and for follow-up with them and/or the need for any referrals to a consulting specialist. The emergency department will also refer you to a specialist when appropriate. This referral assures that you have the opportunity for follow-up care with a specialist. All of these measure are taken in an effort to provide you with optimal care, which includes your follow-up. Under all circumstances we always encourage you to contact your private physician who remains a resource for coordinating your care. When calling for follow-up care, please make the office aware that this follow-up is from your recent emergency room visit. If for any reason you are refused follow-up, please contact the [facility] Emergency Department at and asked to speak to the emergency department charge nurse. [facility] [address] [place] [address] [place] [address] Thank you for choosing the [facility] emergency department in [place] for your medical needs today. It was a pleasure caring for you. Today you were seen in the emergency department for COVID-19 Your prescription was electronically sent to: [place] [facility] 1. Your COVID-19 screening is positive. That means you do have the coronavirus and you are considered contagious. Your vital signs and oxygen saturation are well enough that you were able to monitor your symptoms at home. Continue to mo nitor for trouble breathing, new confusion or inability to arouse, bluish lips or face or any of the other symptoms we discussed -if this occurs please return to the emergency room immediately. 2. Please self quarantine until cleared by [facility] Department. Inform any persons that you have been in contact with since you started becoming symptomatic that you have tested positive; they should be made aware and take the appropriate steps as needed. 3. You can take NyQuil during the evening to help get a restful night sleep. May alternate Tylenol and ibuprofen as needed for pain and fever management. 4. The [facility] department will be calling you and following up with you. The [place] [employer] Hotline phone number , They are open Tuesday - Tuesday 7am - 7pm. Follow up with your primary care provider for re-evaluation as directed. Sepsis Event Note (ED) - Evaluation Sepsis Screening Result: No Definite Risk - Focused Exam Vital Signs: Vital Signs Temp Pulse Resp BP Pulse Ox 12/30/20 18:21 97.3 F 91 20 111/82 97
[2020-12-30 19:53] LABS: BLOOD UREA NITROGEN,BUN 9 mg/dL (7.0-18.0); CARBON DIOXIDE,CO2 21.3 mmol/L (21.0-32.0); CHLORIDE,CL 103 mmol/L (98-107); GLUCOSE RANDOM 92 mg/dL (74-106); POTASSIUM,K 3.6 mmol/L (3.5-5.1); SODIUM,NA 137 mmol/L (136-145)
--- NOTE | 2020-12-30 19:57 | CR ---
Clinical INDICATION: Cough. FINDINGS: Heart size is magnified by the AP technique. The lungs are clear. The pulmonary vasculature and pleural surfaces appear normal. The bony thorax appears intact. IMPRESSION: Negative study. Dictated by Kedar Ross MD @ 12/30/2020 7:54:49 PM (Electronically Signed)
[2020-12-30 20:29] VITALS: BP 111/73; PULSE 76
== END 2020-12-30 20:29 | disposition home or self-care (01) ==
LOC: MW.ED 16:06
DX: U07.1 COVID-19 (principal)
CPT/HCPCS: 36415; 71045; 80053; 85025; 87635; 96374; 96375; 99284; J1885; J2405; J7030; U0002